=== PATIENT | male | born 1980 | race Two or more races ===

== ENCOUNTER 2023-02-12 17:07 | Emergency (ER) | payer OTHER ==
[~2023-02-12] VITALS: Ht 188 cm; Wt 88.0 kg
[2023-02-12 17:42] VITALS: BP 144/95
== END 2023-02-12 18:04 | disposition home or self-care (01) ==
LOC: ER 17:07
DX: M79.10 Myalgia, unspecified site (principal); R11.0 Nausea
CPT/HCPCS: 99281